=== PATIENT | female | born 1965 | race American Indian/Alaskan Native ===

== ENCOUNTER 2021-11-17 15:35 | Emergency (ER) | payer MEDICARE ==
[2021-11-17 15:55] VITALS: BP 118/76
== END 2021-11-17 19:00 | disposition left against medical advice (07) ==
LOC: ED 15:35
DX: R73.01 Impaired fasting glucose (principal); Z53.21 Procedure and treatment not carried out due to patient leaving prior to being seen by health care provider
CPT/HCPCS: 82962

== ENCOUNTER 2022-02-23 17:46 | Emergency (ER) | payer MEDICARE ==
[2022-02-23 20:11] VITALS: BP 123/91
[2022-02-23 21:28] LABS: Blood Urea Nitrogen 11 mg/dL (7-17); Calcium 10.4 mg/dL (8.4-10.2); Hemolysis Index 17
[2022-02-23 21:29] LABS: BUN/Creatinine Ratio 18
[2022-02-23 21:31] LABS: Hematocrit 46.2 % (30.3-42.9); Hemoglobin 15.4 gm/dl (10.1-14.3); Mean Corpuscular HGB Conc 33 % (30-34); Mean Corpuscular Volume 82 fl (79-97); Platelet Count 225 K/mm3 (140-440); Red Cell Distribution Width 14.3 % (13.2-15.2)
[2022-02-23 21:50] LABS: RBC,Urine > 182.0 /HPF (0.0-6.0)
[2022-02-23 21:51] LABS: Color,Urine Yellow (Yellow)
== END 2022-02-25 09:52 | disposition left against medical advice (07) ==
LOC: ED 17:46
DX: R73.9 Hyperglycemia, unspecified (principal); Z53.21 Procedure and treatment not carried out due to patient leaving prior to being seen by health care provider
CPT/HCPCS: 36415; 80048; 81001; 82962; 85027

== ENCOUNTER 2022-02-24 10:46 | Emergency (ER) | payer MEDICARE ==
--- NOTE | 2022-02-24 11:32 | Emergency Department Report ---
Stated Complaint: HIGH BLOOD SUGAR - HPI History of Present Illness: 56-year-old female past medical history of diabetes hypertension reports to the ER with complaints of vaginal bleeding for about 2 to 3 days. Patient does have a history of hysterectomy. Patient also reports numbness and tingling in her in her hands. Patient reports she does take her diabetic medication as prescribed. Patient does report she does not eat a well-balanced diet and has she should have been a diabetic. No other acute symptoms reported. - ROS Review of Systems: Vaginal bleeding 2 days. Tingling and numbness in bilateral hands. - Exam Physical Exam: Nonlabored breathing. Gait steady. Alert oriented x4. MSE screening note: Focused history and physical exam performed. Due to findings the following was ordered: MSE has been complete. Orders have been placed. Patient pending room in the back for further evaluation and further treatment. My Active Orders 02/24/22 11:32 Complete Blood Count Auto Diff Stat Comprehensive Metabolic Panel Stat Urinalysis Complete Stat US pelvic complete Stat US transvaginal Urgent 02/24/22 11:33 US Bladder Residual/Pelvic Pre ROUTINE ED Disposition for MSE Condition: Stable
[2022-02-24 12:21] LABS: Basophils % (Auto) 0.5 % (0.0-1.8); Eosinophils # (Auto) 0.1 K/mm3 (0.0-0.4); Eosinophils % (Auto) 0.8 % (0.0-4.3); Hematocrit 42.9 % (30.3-42.9); Hemoglobin 14.4 gm/dl (10.1-14.3); Lymphocytes # (Auto) 1.8 K/mm3 (1.2-5.4); Lymphocytes % (Auto) 25.9 % (13.4-35.0); Mean Corpuscular HGB Conc 34 % (30-34); Mean Corpuscular Volume 83 fl (79-97); Monocytes # (Auto) 0.4 K/mm3 (0.0-0.8); Monocytes % (Auto) 5.8 % (0.0-7.3); Platelet Count 191 K/mm3 (140-440); Red Blood Count 5.17 M/mm3 (3.65-5.03); Red Cell Distribution Width 13.7 % (13.2-15.2)
--- NOTE | 2022-02-24 12:35 | Ultrasound Report ---
ULTRASOUND PELVIS INDICATION: vaginal bleeding. TECHNIQUE: Transabdominal and Transvaginal. Duplex Color Doppler used: Yes. COMPARISON: None available FINDINGS: Previous complete hysterectomy. No mass or fluid collection. Urinary Bladder: Normal. Free Fluid: None. Additional Findings: None. IMPRESSION: Previous complete hysterectomy. Signer Name: Marcelo Gonzales MD Signed: 02/24/2022 12:31 PM Workstation Name: [id number]
[2022-02-24 12:45] LABS: Alanine Aminotransferase 9 units/L (7-56); Albumin 4.6 g/dL (3.9-5); BUN/Creatinine Ratio 21; Blood Urea Nitrogen 17 mg/dL (7-17); Calcium 9.6 mg/dL (8.4-10.2); Hemolysis Index 5
[2022-02-24 13:32] LABS: RBC,Urine > 182.0 /HPF (0.0-6.0)
[2022-02-24 13:42] LABS: Color,Urine Straw (Yellow)
[2022-02-24] MEDS ORDERED: cefTRIAXone/NS 1 GM/50 ML 1 GM/50 ML BAG IV ONE (14:45)
[2022-02-24] MEDS ORDERED: SODIUM CHLORIDE 0.9% 1000 ML 1,000 ML IV ONE (14:45)
[2022-02-24] MEDS ORDERED: INSULIN REGULAR, HUMAN 100 UNITS/1 ML IV ONE (14:45)
[2022-02-24] MEDS ORDERED: GABAPENTIN 300 MG CAP PO ONE (14:53)
--- NOTE | 2022-02-24 14:58 | Emergency Department Report ---
ED General Adult HPI - General Chief complaint: Medical Clearance Stated complaint: HIGH BLOOD SUGAR Time Seen by Provider: 02/24/22 14:37 Source: patient Mode of arrival: Ambulatory Limitations: No Limitations - History of Present Illness Initial comments: 56-year-old female the past medical history of diabetes (Levemir 36 units nightly and Trulicity q. weekly), diabetic neuropathy, and previous hysterectomy presents to the hospital with 3 separate complaints for the past 3 days. Patient complains of tingling with urination with malodorous urine, bilateral hand paresthesias similar to diabetic neuropathy symptoms, and vaginal bleeding for the last 3 days. Patient states she typically has worsening neuropathy symptoms when her glucose is elevated. She has been compliant with her insulin but not compliant with her diet. Patient has been noncompliant with her gabapentin for the last 2 months and needs another prescription. Patient has been using 2 panty liners per day for her vaginal bleeding episodes over the last 3 days. She denies fever, abdominal pain, nausea, or vomiting. No aggravating or alleviating factors reported Patient's primary doctor is affiliated with [facility] - Related Data Previous Rx's Medication Instructions Recorded Last Taken Type Gabapentin 300 mg PO Q8HR #90 capsule 02/24/22 Unknown Rx cefUROXime [Ceftin] 500 mg PO Q12H 7 Days 02/24/22 Unknown Rx Allergies Allergy/AdvReac Type Severity Reaction Status Date / Time metformin AdvReac Diarrhea Verified 11/17/21 15:51 ED Review of Systems ROS: Stated complaint: HIGH BLOOD SUGAR Other details as noted in HPI Comment: All other systems reviewed and negative ED Past Medical Hx - Past Medical History Hx Hypertension: Yes Hx Diabetes: Yes Hx Psychiatric Treatment: Yes - Surgical History Additional Surgical History: bilateral hands. hysterectomy - Medications Home Medications: Home Medications Medication Instructions Recorded Confirmed Last Taken Type Gabapentin 300 mg PO Q8HR #90 capsule 02/24/22 Unknown Rx cefUROXime [Ceftin] 500 mg PO Q12H 7 Days 02/24/22 Unknown Rx ED Physical Exam - General Limitations: No Limitations - Other Other exam information: General: No acute distress Head: Atraumatic Eyes: normal appearance ENT: Moist mucous membranes Neck: Normal appearance, no midline tenderness Chest: Clear to auscultation bilaterally CV: Regular rate and rhythm Abdomen: Soft, normal bowel sounds, nontender, nondistended, no rebound or guarding Back: Normal inspection Extremity: Normal inspection, full range of motion Neuro: Alert O x 3, no facial asymmetry, speech clear, no gross motor sensory deficit Psych: Appropriate behavior Skin: No rash ED Course Vital Signs 02/24/22 11:27 Temperature 98.4 F Pulse Rate 99 H Respiratory 18 Rate Blood Pressure 127/78 [Left] O2 Sat by Pulse 97 Oximetry ED Medical Decision Making - Lab Data Result diagrams: 02/24/22 11:45 02/24/22 11:45 Lab Results 02/24/22 02/24/22 02/24/22 Range/Units 11:30 11:45 11:45 WBC 7.1 (4.5-11.0) K/mm3 RBC 5.17 H (3.65-5.03) M/mm3 Hgb 14.4 H (10.1-14.3) gm/dl Hct 42.9 (30.3-42.9) % MCV 83 (79-97) fl MCH 28 (28-32) pg MCHC 34 (30-34) % RDW 13.7 (13.2-15.2) % Plt Count 191 (140-440) K/mm3 Lymph % (Auto) 25.9 (13.4-35.0) % [place] % (Auto) 5.8 (0.0-7.3) % Eos % (Auto) 0.8 (0.0-4.3) % Baso % (Auto) 0.5 (0.0-1.8) % Lymph # (Auto) 1.8 (1.2-5.4) K/mm3 [place] # (Auto) 0.4 (0.0-0.8) K/mm3 Eos # (Auto) 0.1 (0.0-0.4) K/mm3 Baso # (Auto) 0.0 (0.0-0.1) K/mm3 Seg Neutrophils % 67.0 (40.0-70.0) % Seg Neutrophils # 4.8 (1.8-7.7) K/mm3 Sodium 136 L (137-145) mmol/L Potassium 4.5 (3.6-5.0) mmol/L Chloride 99.1 (98-107) mmol/L Carbon Dioxide 22 (22-30) mmol/L Anion Gap 19 mmol/L BUN 17 (7-17) mg/dL Creatinine 0.8 (0.6-1.2) mg/dL Estimated GFR > 60 ml/min BUN/Creatinine Ratio 21 % Glucose 309 H (65-100) mg/dL POC Glucose 362 H (70-105) mg/dL Calcium 9.6 (8.4-10.2) mg/dL Total Bilirubin 0.30 (0.1-1.2) mg/dL AST 11 (5-40) units/L ALT 9 (7-56) units/L Alkaline Phosphatase 128 (35-129) units/L Total Protein 7.5 (6.3-8.2) g/dL Albumin 4.6 (3.9-5) g/dL Albumin/Globulin Ratio 1.6 % Urine Color (Yellow) Urine Turbidity (Clear) Specific [place] (Man) (1.003-1.030) Ur Protein (Man) (Negative) mg/dL Ur Ketones (Man) (Negative) Ur Nitrite (Man) (Negative) Ur Reducing Substances Urine Bilirubin (Man) (Negative) Urine Ictotest Leukocyte Esterase (Man) (Negative) Urine WBC (Auto) (0.0-6.0) /HPF Urine RBC (Auto) (0.0-6.0) /HPF U Epithel Cells (Auto) (0-13.0) /HPF Urine RBC (Manual) (Negative) 02/24/22 Range/Units 12:26 WBC (4.5-11.0) K/mm3 RBC (3.65-5.03) M/mm3 Hgb (10.1-14.3) gm/dl Hct (30.3-42.9) % MCV (79-97) fl MCH (28-32) pg MCHC (30-34) % RDW (13.2-15.2) % Plt Count (140-440) K/mm3 Lymph % (Auto) (13.4-35.0) % Stafford % (Auto) (0.0-7.3) % Eos % (Auto) (0.0-4.3) % Baso % (Auto) (0.0-1.8) % Lymph # (Auto) (1.2-5.4) K/mm3 Stafford # (Auto) (0.0-0.8) K/mm3 Eos # (Auto) (0.0-0.4) K/mm3 Baso # (Auto) (0.0-0.1) K/mm3 Seg Neutrophils % (40.0-70.0) % Seg Neutrophils # (1.8-7.7) K/mm3 Sodium (137-145) mmol/L Potassium (3.6-5.0) mmol/L Chloride (98-107) mmol/L Carbon Dioxide (22-30) mmol/L Anion Gap mmol/L BUN (7-17) mg/dL Creatinine (0.6-1.2) mg/dL Estimated GFR ml/min BUN/Creatinine Ratio % Glucose (65-100) mg/dL POC Glucose (70-105) mg/dL Calcium (8.4-10.2) mg/dL Total Bilirubin (0.1-1.2) mg/dL AST (5-40) units/L ALT (7-56) units/L Alkaline Phosphatase (35-129) units/L Total Protein (6.3-8.2) g/dL Albumin (3.9-5) g/dL Albumin/Globulin Ratio % Urine Color Straw (Yellow) Urine Turbidity Cloudy (Clear) Specific [place] (Man) 1.015 (1.003-1.030) Ur Protein (Man) 3+ (Negative) mg/dL Ur Ketones (Man) 5 (Negative) Ur Nitrite (Man) Negative (Negative) Ur Reducing Substances Not Reportable Urine Bilirubin (Man) Negative (Negative) Urine Ictotest Not Reportable Leukocyte Esterase (Man) Negative (Negative) Urine WBC (Auto) 151.0 H (0.0-6.0) /HPF Urine RBC (Auto) > 182.0 (0.0-6.0) /HPF U Epithel Cells (Auto) 3.0 (0-13.0) /HPF Urine RBC (Manual) 3+ (Negative) - Radiology Data Radiology results: report reviewed ULTRASOUND PELVIS INDICATION: vaginal bleeding. TECHNIQUE: Transabdominal and Transvaginal. Duplex Color Doppler used: Yes. COMPARISON: None available FINDINGS: Previous complete hysterectomy. No mass or fluid collection. Urinary Bladder: Normal. Free Fluid: None. Additional Findings: None. IMPRESSION: Previous complete hysterectomy. - Medical Decision Making 56-year female with 2 separate complaints ED work-up reveals hyperglycemia with out signs of DKA, UTI without signs of sepsis, and vaginal bleeding without abnormal findings on pelvic ultrasound or anemia. Patient treated with IV fluid, , p.o. gabapentin, and IV Rocephin. She was advised to follow-up with [facility] as an outpatient due to postmenopausal and post hysterectomy vaginal bleeding to rule out cancer. Patient's glucose improved prior 100's range prior to receiving IV insulin. Critical Care Time: No Critical care attestation.: If time is entered above; I have spent that time in minutes in the direct care of this critically ill patient, excluding procedure time. ED Disposition Clinical Impression: Hyperglycemia due to diabetes mellitus, Postmenopausal vaginal bleeding, Diabetic neuropathy, UTI (urinary tract infection) Disposition: 01 HOME / SELF CARE / HOMELESS Is pt being admited?: No Does the pt Need Aspirin: No Condition: Stable Instructions: Diabetic Neuropathy, Postmenopausal Bleeding, [id number], Diabetes Mellitus and Nutrition, Adult, Diabetes Mellitus Type 2 in Adults (ED), Urinary Tract Infection, Adult, [id number] Additional Instructions: Take the medication as prescribed. Follow-up with your primary care doctor. Follow-up with your [facility] doctor of your choice or the [facility] doctor provided for assessment of postmenopausal vaginal bleeding to rule out cancer. Return if symptoms worsen as indicated by your discharge instructions. Prescriptions: cefUROXime [Ceftin] 500 mg PO Q12H 7 Days Gabapentin 300 mg PO Q8HR #90 capsule Referrals: DORA ZACARIAS MD [Staff Physician] - 3-5 Days ([facility] physician) your, primary doctor [Other] - 3-5 Days Time of Disposition: 16:29
[2022-02-24] MEDS ORDERED: SODIUM CHLORIDE 0.9% 250ML 250 ML IV ONE (16:21)
[2022-02-24 17:36] VITALS: BP 157/78
--- NOTE | 2022-02-26 08:45 | Ultrasound Report ---
Endovaginal pelvic Ultrasound HISTORY: vaginal bleeding. TECHNIQUE: Grayscale and color imaging performed. COMPARISON: None FINDINGS: Uterus is surgically absent. Ovaries are not visualized. No mass or collection. No free flu id. IMPRESSION: Unremarkable postoperative pelvis. Signer Name: Jose Block MD Signed: 02/26/2022 8:40 AM Workstation Name: [email or web address]
== END 2022-02-24 17:36 | disposition home or self-care (01) ==
LOC: ED 10:46
DX: E11.65 Type 2 diabetes mellitus with hyperglycemia (principal); N95.0 Postmenopausal bleeding; E11.21 Type 2 diabetes mellitus with diabetic nephropathy; N39.0 Urinary tract infection, site not specified
CPT/HCPCS: 36415; 76830; 76856; 80053; 81001; 82962; 85025; 96365; 99284; J0696; J7030